=== PATIENT | male | born 1980 | race American Indian/Alaskan Native ===

== ENCOUNTER 2017-03-11 15:36 | Emergency (ER) | payer MEDICAID ==
[2017-03-11 15:44] VITALS: BP 125/82
--- NOTE | 2017-03-11 16:11 | CR ---
Clinical history: 36-year-old male left rib pain (fall down stairs). Interpretation: Abnormal. Acute nondisplaced fracture anterolateral aspect left fifth rib. No appreciable hematoma and no sign of underlying lung contusion or atelectasis. No ipsilateral dependent pleural effusion. No left-sided pneumothorax. Normal cardiac silhouette and pulmonary vascularity. No lung mass hilar lymphadenopathy or focal lob ar pneumonia.
--- NOTE | 2017-03-11 17:14 | EDM.PDOC ---
Scribed by Nancie Fuentes 03/11/17 8217 for Aryan Vides MD ED HPI GENERAL MEDICAL PROBLEM - General Chief Complaint: Chest Pain Stated Complaint: SLIPPED AND HURT LEFT SIDE BY RIBS Time Seen by Provider: 03/11/17 15:49 Source of Information: Reports: Patient, RN, RN Notes Reviewed History Limitations: Reports: No Limitations - History of Present Illness INITIAL COMMENTS - FREE TEXT/NARRATIVE: Arrives to ER with complaint fell down 8 steps about 1 hour ago and hurt his left ribs. Patient states that he was drunk and tripped. Denies head or neck injury, LOS, nausea, vomiting, or difficulty breathing. Location: Reports: Chest Quality: Reports: Ache Severity: Severe Improves with: Reports: None Worsens with: Reports: None Associated Symptoms: Reports: No Other Symptoms Left Chest Pain Score (Numeric/FACES): 9 - Related Data Allergies Allergy/AdvReac Type Severity Reaction Status Date / Time No Known Allergies Allergy Verified 09/27/15 20:01 Home Meds: Home Meds . [No Known Home Meds] 09/27/15 [History] Past Medical History - Past Health History Medical/Surgical History: Denies Medical/Surgical History Social & Family History - Tobacco Use Smoking Status *Q: Light Tobacco Smoker Years of Tobacco use: 5 Packs/Tins Daily: 0.2 - Recreational Drug Use Recreational Drug Use: No ED ROS GENERAL - Review of Systems Review Of Systems: ROS reveals no pertinent complaints other than HPI. ED EXAM, GENERAL - Physical Exam Exam: See Below Exam Limited By: No Limitations General Appearance: Alert, WD/WN, No Apparent Distress Head: Atraumatic, Normocephalic Neck: Full Range of Motion, Other (Nontender.) Respiratory/Chest: Decreased Breath Sounds (but clear breath sounds bilateral with splinting. ), Other (Tenderness to lateral chest wall/ribs. ) Cardiovascular: Normal Peripheral Pulses, Regular Rate, Rhythm, No Edema, No Gallop, No JVD, No Murmur, No Rub GI/Abdominal: Normal Bowel Sounds, Soft, Non-Tender, No Organomegaly, No Distention, No Abnormal Bruit, No Mass Back Exam: Normal Inspection, Full Range of Motion, NT Extremities: Normal Inspection, Normal Range of Motion, Non-Tender, Normal Capillary Refill, No Pedal Edema Neurological: Alert, Oriented, CN II-XII Intact, Normal Cognition, Normal Gait, Normal Reflexes, No Motor/Sensory Deficits Psychiatric: Normal Affect, Normal Mood Skin Exam: Warm, Dry, Intact, Normal Color, No Rash Course - Vital Signs Last Recorded V/S: Last Vital Signs Temp 36.7 C 03/11/17 15:43 Pulse 106 H 03/11/17 15:43 Resp 18 03/11/17 15:43 BP 125/82 03/11/17 15:43 Pulse Ox 92 L 03/11/17 15:43 - Radiology Interpretation Free Text/Narrative:: Ribs/Chest: Per rad report acute nondisplaced fracture anterolateral aspect left fifth rib. Departure - Departure Time of Disposition: 17:10 Disposition: Home, Self-Care 01 Condition: Good Clinical Impression: Left rib fracture Qualifiers: Encounter type: initial encounter Rib fracture type: single rib Fracture type: closed Qualified Code(s): S22.32XA - Fracture of one rib, left side, initial encounter for closed fracture Alcoholic intoxication Qualifiers: Complication of substance-induced condition: uncomplicated Qualified Code(s): F10.920 - Alcohol use, unspecified with intoxication, uncomplicated - Discharge Information Instructions: Alcohol Intoxication, [id number], Rib Fracture, [id number] Referrals: PCP,None [Primary Care Provider] - Forms: ED Department Discharge Additional Instructions: RX: Ibuprofen 600mg. RX: [place] 5mg/325mg. Use ice pack on area of pain as needed. Follow up in clinic in 7-10 days for recheck. I have read and agree with the documentation that has been completed regarding this visit. By signing this record, I attest that the documentation was completed in my physical presence and is an accurate record of the encounter.
== END 2017-03-11 17:19 | disposition home or self-care (01) ==
LOC: DL.ED 15:36
DX: S22.32XA Fracture of one rib, left side, initial encounter for closed fracture (principal); F17.210 Nicotine dependence, cigarettes, uncomplicated; W10.8XXA Fall (on) (from) other stairs and steps, initial encounter
CPT/HCPCS: 71101-LT; 99284

== ENCOUNTER 2019-02-06 17:19 | Emergency (ER) | payer MEDICAID ==
[2019-02-06] MEDS ORDERED: HYDROmorphone 1 MG/ML Syringe IVPUSH ONE ×2 (17:23→19:03)
[2019-02-06] MEDS ORDERED: Ondansetron 4 MG/2 ML SDV IV ONE (17:24)
[2019-02-06] MEDS ORDERED: Sodium Chloride 0.9% 1,000 ML IV SCH (17:30)
--- NOTE | 2019-02-06 17:32 | EDM.PDOC ---
"<Bailey Hirsch - Last Filed: 02/06/19 18:57> ED HPI GENERAL MEDICAL PROBLEM - General Chief Complaint: Abdominal Pain Stated Complaint: AMBULANCE Time Seen by Provider: 02/06/19 17:27 - History of Present Illness INITIAL COMMENTS - FREE TEXT/NARRATIVE: Patient is a 38 year old male presenting with RLQ pain. He states that it began at 16:00 with sharp pain in his right lower quadrant. He tried resting and it did not resolve. He tried to go to the clinic but the pain was too severe to make it so he called the ambulance to come to the ER. He states it was intermittent at first but is getting worse and more consistent. It is starting to radiate across his lower abdomen. He denies any symptoms of fever, chills, chest pain, shortness of breath, dizziness, lightheadedness, blood in stool or urine, changes in urination or bowel habits. He ate a bowel of cereal this morning but has otherwise not eaten anything today. He had some vodka yesterday with his friend, and his last use of methamphetamine was 2 weeks ago. He has no other concerns. - Related Data Allergies Allergy/AdvReac Type Severity Reaction Status Date / Time No Known Allergies Allergy Verified 09/27/15 20:01 Home Meds: Home Meds . [No Known Home Meds] 09/27/15 [History] Past Medical History - Past Health History Medical/Surgical History: Denies Medical/Surgical History ED ROS GENERAL - Review of Systems Review Of Systems: ROS reveals no pertinent complaints other than HPI. ED EXAM, GI/ABD - Physical Exam Exam: See Below Exam Limited By: No Limitations General Appearance: Alert, WD/WN, Severe Distress Eyes: Bilateral: Normal Appearance Ears: Normal External Exam Nose: Normal Inspection Throat/Mouth: Normal Inspection Head: Atraumatic, Normocephalic Neck: Normal Inspection, Supple Respiratory/Chest: Lungs Clear, Normal Breath Sounds, No Accessory Muscle Use Cardiovascular: Normal Peripheral Pulses, Regular Rate, Rhythm, No Murmur GI/Abdominal Exam: Normal Bowel Sounds, Soft, No Distention, No Mass, Guarding, Tender (most severe in RLQ). No: Rebound Back Exam: No: CVA Tenderness (L), CVA Tenderness (R) Extremities: Normal Inspection, No Pedal Edema Neurological: Alert, Oriented Skin Exam: Warm, Dry, Rash (dry skin with open lesions below umbilicus, small scratch in RUQ) Course - Vital Signs Last Recorded V/S: Last Vital Signs Temp 98.5 F 02/06/19 17:49 Pulse 73 02/06/19 17:49 Resp 16 02/06/19 17:49 BP 118/95 H 02/06/19 17:49 Pulse Ox 98 02/06/19 17:49 - Orders/Labs/Meds Orders: Active Orders 24 hr Category Date Time Status Abdomen Pelvis wo Cont [CT] Urgent Exams 02/06/19 17:23 Taken Sodium Chloride 0.9% [Normal Saline] 1,000 ml Med 02/06/19 17:30 Active IV ASDIRECTED Medication Orders Sodium Chloride (Normal Saline) 1,000 mls @ 999 mls/hr IV ASDIRECTED LUAN Last Admin: 02/06/19 17:33 Dose: 999 mls/hr Labs: Laboratory Tests 02/06/19 02/06/19 02/06/19 Range/Units 17:10 18:05 18:05 WBC 5.2 (5.0-10.0) 10^3/uL RBC 4.50 L (4.6-6.2) 10^6/uL Hgb 13.7 L (14.0-18.0) g/dL Hct 39.6 L (40.0-54.0) % MCV 88.0 (80-100) fL MCH 30.4 (27.0-34.0) pg MCHC 34.6 (33.0-35.0) g/dL Plt Count 155 (150-450) 10^3/uL Neut % (Auto) 66.3 (42.2-75.2) % Lymph % (Auto) 24.2 (20.5-50.1) % Orange % (Auto) 8.2 H (2-8) % Eos % (Auto) 1.1 (1.0-3.0) % Baso % (Auto) 0.2 (0.0-1.0) % Sodium 136 (135-145) mmol/L Potassium 3.8 (3.6-5.0) mmol/L Chloride 105 (101-111) mmol/L Carbon Dioxide 23.0 (21.0-31.0) mmol/L Anion Gap 11.8 BUN 9 (7-18) mg/dL Creatinine 0.7 (0.6-1.3) mg/dL Est Cr Clr Drug Dosing TNP Estimated GFR (MDRD) > 60 BUN/Creatinine Ratio 12.85 Glucose 97 (74-105) mg/dL Calcium 8.2 L (8.4-10.2) mg/dl Total Bilirubin 1.2 H (0.2-1.0) mg/dL AST 253 H (10-42) IU/L ALT 269 H (10-60) IU/L Alkaline Phosphatase 55 (42-121) IU/L Total Protein 7.3 (6.7-8.2) g/dl Albumin 3.8 (3.2-5.5) g/dl Globulin 3.5 Albumin/Globulin Ratio 1.09 Amylase (28-100) U/L Lipase (22-51) U/L Urine Color Yellow (YELLOW) Urine Appearance Clear (CLEAR) Urine pH 7.0 (5.0-9.0) Ur Specific [place] 1.020 (1.005-1.030) Urine Protein Negative (NEGATIVE) Urine Glucose (UA) Negative (NEGATIVE) Urine Ketones Negative (NEGATIVE) Urine Occult Blood Negative (NEGATIVE) Urine Nitrite Negative (NEGATIVE) Urine Bilirubin Negative (NEGATIVE) Urine Urobilinogen 4.0 H (0.2-1.0) mg/dL Ur Leukocyte Esterase Negative (NEGATIVE) 02/06/19 Range/Units 18:05 WBC (5.0-10.0) 10^3/uL RBC (4.6-6.2) 10^6/uL Hgb (14.0-18.0) g/dL Hct (40.0-54.0) % MCV (80-100) fL MCH (27.0-34.0) pg MCHC (33.0-35.0) g/dL Plt Count (150-450) 10^3/uL Neut % (Auto) (42.2-75.2) % Lymph % (Auto) (20.5-50.1) % Orange % (Auto) (2-8) % Eos % (Auto) (1.0-3.0) % Baso % (Auto) (0.0-1.0) % Sodium (135-145) mmol/L Potassium (3.6-5.0) mmol/L Chloride (101-111) mmol/L Carbon Dioxide (21.0-31.0) mmol/L Anion Gap BUN (7-18) mg/dL Creatinine (0.6-1.3) mg/dL Est Cr Clr Drug Dosing Estimated GFR (MDRD) BUN/Creatinine Ratio Glucose (74-105) mg/dL Calcium (8.4-10.2) mg/dl Total Bilirubin (0.2-1.0) mg/dL AST (10-42) IU/L ALT (10-60) IU/L Alkaline Phosphatase (42-121) IU/L Total Protein (6.7-8.2) g/dl Albumin (3.2-5.5) g/dl Globulin Albumin/Globulin Ratio Amylase 52 (28-100) U/L Lipase 26 (22-51) U/L Urine Color (YELLOW) Urine Appearance (CLEAR) Urine pH (5.0-9.0) Ur Specific [place] (1.005-1.030) Urine Protein (NEGATIVE) Urine Glucose (UA) (NEGATIVE) Urine Ketones (NEGATIVE) Urine Occult Blood (NEGATIVE) Urine Nitrite (NEGATIVE) Urine Bilirubin (NEGATIVE) Urine Urobilinogen (0.2-1.0) mg/dL Ur Leukocyte Esterase (NEGATIVE) Meds: Medications Generic Name Dose Route Start Last Admin Trade Name Freq PRN Reason Stop Dose Admin Sodium Chloride 1,000 mls @ 999 mls/hr 02/06/19 17:30 02/06/19 17:33 Normal Saline IV 999 mls/hr ASDIRECTED LUAN Administration Discontinued Medications Generic Name Dose Route Start Last Admin Trade Name Freq PRN Reason Stop Dose Admin Dicyclomine HCl 20 mg 02/06/19 18:57 Bentyl IM 02/06/19 18:58 ONETIME ONE Hydromorphone HCl 1 mg 02/06/19 17:23 02/06/19 17:33 Dilaudid IVPUSH 02/06/19 17:24 1 mg ONETIME ONE Administration Hydromorphone HCl 1 mg 02/06/19 19:03 Dilaudid IVPUSH 02/06/19 19:04 ONETIME ONE Ketorolac Tromethamine 30 mg 02/06/19 18:20 02/06/19 18:24 Toradol IVPUSH 02/06/19 18:21 30 mg ONETIME ONE Administration Ondansetron HCl 4 mg 02/06/19 17:24 02/06/19 17:33 Zofran IV 02/06/19 17:25 4 mg ONETIME ONE Administration Departure - Departure Time of Disposition: 18:58 Disposition: Home, Self-Care 01 Condition: Fair Clinical Impression: Liver enzyme elevation - Discharge Information *PRESCRIPTION DRUG MONITORING PROGRAM REVIEWED*: No *COPY OF PRESCRIPTION DRUG MONITORING REPORT IN PATIENT MARISSA: No Instructions: Nausea and Vomiting, Adult, [id number], Pain Medicine Instructions, [id number] Forms: ED Department Discharge Additional Instructions: 1. Patient is to stay hydrated by drinking water and take prescribed medications including Bentyl 20mg PO 4 times per day as needed for abdominal pain and Zofran 4mg every 6-8 hours as needed for nausea and vomiting. 2. Patient was instructed to stop alcohol intake and methamphetamine as this can make his symptoms worse. 3. Advised to follow-up with primary care provider in clinic this week to follow -up his elevated liver enzymes. <Angelo Vides - Last Filed: 02/06/19 19:06> ED HPI GENERAL MEDICAL PROBLEM Right Lower Abdomen Pain Score (Numeric/FACES): 8 Course - Radiology Interpretation Free Text/Narrative:: assistance Online chat: [email or web address] Name: GAURANG GONZALEZ Age: 38Years M Date: 02/06/2019 SSN: -- : [id number] Study: CT ABDOMEN/PELVIS WO Requesting Physician: ANGELO VIDES Images: [id number] Addl Studies: Provided Clinical History: Contrast: Without Contrast Medium: Contrast Amount: Contrast Method: Page 1 of 2 EXAM: CT Abdomen and Pelvis Without Contrast EXAM DATE/TIME: 02/06/2019 5:41 PM CLINICAL HISTORY: 38 years old, male; Abdominal pain; Localized; Right lower quadrant (rlq) TECHNIQUE: Imaging protocol: Axial computed tomography images of the abdomen and pelvis without contrast. Coronal and sagittal reformatted images were created and reviewed. Radiation optimization: All CT scans at this facility use at least one of these dose optimization techniques: automated exposure control; mA and/or kV adjustment per patient size (includes targeted exams where dose is matched to clinical indication); or iterative reconstruction. COMPARISON: No relevant prior studies available. FINDINGS: Lungs: There are no suspicious pulmonary nodules or areas of lung consolidation. ABDOMEN: Liver: There is moderate fatty liver replacement. Gallbladder and bile ducts: No calcified gallstones. No ductal dilation. Pancreas: The pancreatic parenchyma is normal in bulk and sharply marginated. Duct is not dilated. No calcifications, masses, or abnormal fluid collections. Spleen: Spleen is normal in size. No mass or fluid collection. Adrenals: There are no adrenal masses. Kidneys and ureters: Normal in parenchymal bulk. No hydronephrosis or asymmetric perinephric stranding. No solid masses. No stones. GAURNAG GONZALEZ | Final Radiology Report CONFIDENTIALITY STATEMENT This report is intended only for use by the referring physician, and only in accordance with law. If you received this in error, call [phone]. Page 2 of 2 Stomach and bowel: No significant abnormalities of the stomach. There are no dilated or thickened small bowel loops. Gas and stool of appropriate quantities are seen in the colon. No mass. Appendix: The appendix is seen. It is normal. PELVIS: Bladder: Mild, eccentric bladder wall thickening could be due to relative nondistention, cystitis, or other. Reproductive: Prostate gland is normal in size. The seminal vesicles are unremarkable. ABDOMEN and PELVIS: Intraperitoneal space: No ascites. No abscess. No inflammation within the intra- abdominal fat. No pneumoperitoneum. No mass. Bones/joints: There are no suspicious lytic or osteosclerotic lesions. There are no vertebral compression fractures. Soft tissues: See Intraperitoneal Space Finding. Vasculature: Normal. No abdominal aortic aneurysm. Lymph nodes: There are no enlarged celiac, mesenteric, periportal, extraperitoneal or inguinal lymph nodes. IMPRESSION: 1. Mild, eccentric bladder wall thickening could be due to relative nondistention, cystitis, or other. 2. Normal appendix. Thank you for allowing us to participate in the care of your patient. Dictated and Authenticated by: Nnamdi Lopez MD 02/06/2019 6:04 PM Central Time ([place] & [place]) - Re-Assessments/Exams Free Text/Narrative Re-Assessment/Exam: 02/06/19 18:07 I personally performed or re-performed the physical examination and medical decision making. I have verified all student documentation or findings, including history, physical exam and/or medical decision making."
[2019-02-06] MEDS ORDERED: Ketorolac 30 MG/ML SDV IVPUSH ONE (18:20)
[2019-02-06 18:34] LABS: ANION GAP 11.8; CHLORIDE,CL 105 mmol/L (101-111); SODIUM,NA 136 mmol/L (135-145)
[2019-02-06] MEDS ORDERED: Dicyclomine 20 MG/2 ML SDV IM ONE (18:57)
[2019-02-06 19:14] VITALS: BP 145/92
== END 2019-02-06 19:33 | disposition home or self-care (01) ==
LOC: DL.ED 17:19
DX: R74.8 Abnormal levels of other serum enzymes (principal)
CPT/HCPCS: 36415; 74176; 80053; 81003; 82150; 83690; 85025; 96361; 96372; 96374; 96375; 96376; 99285-25; J0500; J1170; J1885; J2405; J7030

== ENCOUNTER 2019-03-01 16:08 | Emergency (ER) | payer MEDICAID ==
[2019-03-01 16:52] VITALS: BP 135/94
--- NOTE | 2019-03-01 17:17 | EDM.PDOC ---
Scribed by Nancie Fuentes 03/01/19 1717 for José Miguel Basilio PA ED HPI GENERAL MEDICAL PROBLEM - General Chief Complaint: Trauma Stated Complaint: MAY HAVE BROKEN RIB Time Seen by Provider: 03/01/19 16:23 Source of Information: Reports: Patient, RN, RN Notes Reviewed History Limitations: Reports: No Limitations - History of Present Illness INITIAL COMMENTS - FREE TEXT/NARRATIVE: Patient is a 38-year-old male who fell down about 12 steps 2 days ago. The patient reports continued lateral rib pain since he fell. The patient reports he took Ibuprofen this morning. The patient reports he may have gotten knocked out during the fall. The patient has a healed laceration above right eye with some bruising. Onset Date: 02/27/19 Duration: Constant Location: Reports: Other (ribs) Quality: Reports: Ache Severity: Moderate Improves with: Reports: None Worsens with: Reports: None Associated Symptoms: Reports: No Other Symptoms - Related Data Allergies Allergy/AdvReac Type Severity Reaction Status Date / Time No Known Allergies Allergy Verified 03/01/19 16:25 Home Meds: Home Meds . [No Known Home Meds] 09/27/15 [History] Past Medical History - Past Health History Medical/Surgical History: Denies Medical/Surgical History ED ROS GENERAL - Review of Systems Review Of Systems: ROS reveals no pertinent complaints other than HPI. ED EXAM, GENERAL - Physical Exam Exam: See Below Exam Limited By: No Limitations General Appearance: Alert, WD/WN, No Apparent Distress Eye Exam: Right Eye: Other (bruising to right eye), Bilateral Eye: EOMI, Normal Inspection, PERRL Ears: Normal External Exam, Normal Canal, Hearing Grossly Normal, Normal TMs Nose: Normal Inspection, Normal Mucosa, No Blood Throat/Mouth: Normal Inspection, Normal Lips, Normal Teeth, Normal Gums, Normal Oropharynx, Normal Voice, No Airway Compromise Head: Atraumatic, Normocephalic Neck: Normal Inspection, Supple, Non-Tender, Full Range of Motion Respiratory/Chest: Other (Tenderness to lateral ribs bilaterally with bruising mid axillary line bilaterally. No crepitus upon palpation. ) Cardiovascular: Normal Peripheral Pulses, Regular Rate, Rhythm, No Edema, No Gallop, No JVD, No Murmur, No Rub GI/Abdominal: Normal Bowel Sounds, Soft, Non-Tender, No Organomegaly, No Distention, No Abnormal Bruit, No Mass (Male) Exam: Deferred Rectal (Males) Exam: Deferred Back Exam: Other (bilateral rb pain upon palpation) Extremities: Normal Inspection, Normal Range of Motion, Non-Tender, Normal Capillary Refill, No Pedal Edema Neurological: Alert, Oriented, CN II-XII Intact, Normal Cognition, Normal Gait, Normal Reflexes, No Motor/Sensory Deficits Psychiatric: Normal Affect, Normal Mood Skin Exam: Warm, Dry, Intact, Normal Color, No Rash Lymphatic: No Adenopathy Course - Vital Signs Last Recorded V/S: Last Vital Signs Temp 36.9 C 03/01/19 16:50 Pulse 78 03/01/19 16:50 Resp 18 03/01/19 16:50 BP 135/94 H 03/01/19 16:50 Pulse Ox 98 03/01/19 16:50 - Orders/Labs/Meds Orders: Active Orders 24 hr Category Date Time Status Ribs 3V w Chest Bi [CR] Urgent Exams 03/01/19 16:21 Ordered Departure - Departure Time of Disposition: 17:16 Disposition: Home, Self-Care 01 Condition: Fair Clinical Impression: Chest wall contusion Qualifiers: Encounter type: initial encounter Laterality: unspecified laterality Qualified Code(s): S20.219A - Contusion of unspecified front wall of thorax, initial encounter - Discharge Information *PRESCRIPTION DRUG MONITORING PROGRAM REVIEWED*: Not Applicable *COPY OF PRESCRIPTION DRUG MONITORING REPORT IN PATIENT MARISSA: Not Applicable Instructions: Contusion, Jiat-sm-Pcqs Forms: ED Department Discharge Care Plan Goals: The patient was advised of the examination and x-ray results during the visit. The patient was encouraged to take Tylenol or ibuprofen for temporary symptom relief. If the patient has any additional symptoms or concerns, the patient should either return to the emergency department or visit his primary care facility. - My Orders Last 24 Hours: My Active Orders 03/01/19 16:21 Ribs 3V w Chest Bi [CR] Urgent - Assessment/Plan Last 24 Hours: My Active Orders 03/01/19 16:21 Ribs 3V w Chest Bi [CR] Urgent I have read and agree with the documentation that has been completed regarding this visit. By signing this record, I attest that the documentation was completed in my physical presence and is an accurate record of the encounter.
== END 2019-03-01 17:25 | disposition home or self-care (01) ==
LOC: DL.ED 16:08
DX: S20.219A Contusion of unspecified front wall of thorax, initial encounter (principal); W19.XXXA Unspecified fall, initial encounter
CPT/HCPCS: 71111; 99283-25

== ENCOUNTER 2019-07-06 19:50 | Emergency (ER) | payer MEDICAID ==
[2019-07-06 20:03] VITALS: BP 111/83; PULSE 99
--- NOTE | 2019-07-06 20:59 | EDM.PDOC ---
ED HPI GENERAL MEDICAL PROBLEM - General Chief Complaint: Upper Extremity Injury/Pain Stated Complaint: INJURED L ARM Time Seen by Provider: 07/06/19 20:13 Source of Information: Reports: Patient, RN, RN Notes Reviewed History Limitations: Reports: Intoxication - History of Present Illness INITIAL COMMENTS - FREE TEXT/NARRATIVE: patient presents to the ER,accompanied by his brother, with complaint of left arm pain. He states he was leaving [employer] when he fell. Patient states he fell on the left arm injuring it. Patient states he has been drinking alcohol. Patient complains of pain from the left upper arm down into the hand.Denies hitting his head or being knocked out.patient states this occurred 30 minutes prior to arrival. Onset: Today, Sudden Duration: Constant Location: Reports: Upper Extremity, Left Left Arm Pain Score (Numeric/FACES): 8 - Related Data Allergies Allergy/AdvReac Type Severity Reaction Status Date / Time No Known Allergies Allergy Verified 07/06/19 20:04 Home Meds: Home Meds . [No Known Home Meds] 09/27/15 [History] Past Medical History - Past Health History Medical/Surgical History: Denies Medical/Surgical History HEENT History: Reports: None Cardiovascular History: Reports: None Respiratory History: Reports: None Gastrointestinal History: Reports: None Genitourinary History: Reports: None Musculoskeletal History: Reports: Other (See Below) Other Musculoskeletal History: left arm injury hx of being cut on left arm Neurological History: Reports: None Psychiatric History: Reports: None Endocrine/Metabolic History: Reports: None Hematologic History: Reports: None Immunologic History: Reports: None Oncologic (Cancer) History: Reports: None Dermatologic History: Reports: None - Infectious Disease History Infectious Disease History: Reports: None - Past Surgical History Head Surgeries/Procedures: Reports: None Social & Family History - Family History Family Medical History: Noncontributory - Tobacco Use Smoking Status *Q: Never Smoker - Caffeine Use Caffeine Use: Reports: Coffee, Soda - Recreational Drug Use Recreational Drug Use: No Review of Systems - Review of Systems Review Of Systems: ROS reveals no pertinent complaints other than HPI. ED EXAM, GENERAL - Physical Exam Exam: See Below Exam Limited By: Intoxication General Appearance: Alert, WD/WN, Moderate Distress Eye Exam: Bilateral Eye: EOMI, Normal Inspection Ears: Normal External Exam, Hearing Grossly Normal Nose: Normal Inspection Throat/Mouth: Normal Inspection, Normal Voice, No Airway Compromise Head: Atraumatic, Normocephalic Neck: Normal Inspection, Supple, Non-Tender, Full Range of Motion Respiratory/Chest: No Respiratory Distress, Lungs Clear, Normal Breath Sounds, No Accessory Muscle Use, Chest Non-Tender Cardiovascular: Normal Peripheral Pulses, Regular Rate, Rhythm, No Edema, No Gallop, No JVD, No Murmur, No Rub Peripheral Pulses: 2+: Radial (L), Radial (R) GI/Abdominal: Normal Bowel Sounds, Soft, Non-Tender (Male) Exam: Deferred Rectal (Males) Exam: Deferred Back Exam: Normal Inspection, Full Range of Motion, NT Extremities: No Pedal Edema, Normal Capillary Refill, Arm Pain (left), Limited Range of Motion (eft arm) Neurological: Alert, Oriented, Normal Gait Psychiatric: Anxious Skin Exam: Warm, Dry, Intact, Normal Color, No Rash Lymphatic: No Adenopathy Course - Vital Signs Last Recorded V/S: Last Vital Signs Temp 97.2 F 07/06/19 20:01 Pulse 99 07/06/19 20:01 Resp 20 07/06/19 20:01 BP 111/83 07/06/19 20:01 Pulse Ox 96 07/06/19 20:01 - Radiology Interpretation Free Text/Narrative:: Left shoulder xray: FINDINGS: Bones/joints: Unremarkable. No significant degenerative change for age. No evidence of acute fracture or malalingment. Soft tissues: Unremarkable. IMPRESSION: No acute findings. Thank you for allowing us to participate in the care of your patient. Dictated and Authenticated by: Baljinder Martell MD 07/06/2019 9:19 PM Central Time ([place] & [place]) Left elbow xray: FINDINGS: Bones/joints: Typical for age. No evidence of acute fracture. Soft tissues: Unremarkable. IMPRESSION: No acute findings. Thank you for allowing us to participate in the care of your patient. Dictated and Authenticated by: Baljinder Martell MD 07/06/2019 9:19 PM Central Time ([place] & [place]) Left hand: FINDINGS: Limited views. Bones/joints: There are some degenerative changes. No obvious acute fracture. Soft tissues: Unremarkable. IMPRESSION: No acute findings. If there are persistent symptoms then I would suggest routine 4 view study when the patient can cooperate for the exam. Thank you for allowing us to participate in the care of your patient. Dictated and Authenticated by: Baljinder Martell MD 07/06/2019 9:15 PM Central Time ([place] & [place]) See rad report - Re-Assessments/Exams Free Text/Narrative Re-Assessment/Exam: 07/06/19 21:28 when discussing the x-ray results with the patient, the patient states he will not wear a sling. When initially assessing the patient patient denied hitting his head or being knocked out. Upon discharge patient states he didn't know what his brother's name was or how he got here. Discussed a head CT with the patient, who refuses to have a head CT done at this time. Departure - Departure Time of Disposition: 21:22 Disposition: Home, Self-Care 01 Condition: Fair Clinical Impression: Left arm pain - Discharge Information *PRESCRIPTION DRUG MONITORING PROGRAM REVIEWED*: No *COPY OF PRESCRIPTION DRUG MONITORING REPORT IN PATIENT MARISSA: No Instructions: How to Use a Sling, [id number], Shoulder Pain, [id number], Heat Therapy, [id number] Forms: ED Department Discharge Additional Instructions: May use heat and ice to the area as tolerated When not drinking alcohol, you may use Tylenol and/or Ibuprofen as directed for pain Follow up with your primary care facility if pain persists
== END 2019-07-06 21:29 | disposition home or self-care (01) ==
LOC: DL.ED 19:50
DX: M79.622 Pain in left upper arm (principal); W19.XXXA Unspecified fall, initial encounter; Y92.89 Other specified places as the place of occurrence of the external cause
CPT/HCPCS: 73030-LT; 73070-LT; 73120-LT; 99283-25

== ENCOUNTER 2023-01-12 17:19 | Emergency (ER) | payer MEDICAID ==
[2023-01-12 18:13] LABS: BARBITURATES,URINE NEGATIVE (NEGATIVE); BENZODIAZEPINE,URINE NEGATIVE (NEGATIVE); MDMA (ECSTASY), URINE POSITIVE (NEGATIVE); METHADONE,URINE NEGATIVE (NEGATIVE); METHAMPHETAMINES,URINE POSITIVE (NEGATIVE); OPIATES,URINE NEGATIVE (NEGATIVE); PHENCYCLIDINE,URINE NEGATIVE (NEGATIVE); TCA,URINE NEGATIVE (NEGATIVE)
[2023-01-12 18:14] LABS: AMPHETAMINES,URINE POSITIVE (NEGATIVE); OXYCODONE,URINE NEGATIVE (NEGATIVE)
[2023-01-12 18:28] LABS: BASOPHILS PERCENT AUTO 0.4 % (0.0-1.0); EOSINOPHILS PERCENT AUTO 1.9 % (1.0-3.0); HEMATOCRIT 40.3 % (40.0-54.0); LYMPHOCYTES PERCENT AUTO 41.8 % (20.5-50.1); MEAN CORPUSCULAR HGB CONC 34.7 g/dL (33.0-35.0); MEAN CORPUSCULAR VOLUME 89.4 fL (80-100); MONOCYTES PERCENT AUTO 7.4 % (2-8); NEUTROPHILS PERCENT AUTO 48.5 % (42.2-75.2); PLATELET COUNT,PLT 229 10^3/uL (150-450); RED BLOOD CELL COUNT 4.51 10^6/uL (4.6-6.2); WHITE BLOOD CELL COUNT,WBC 6.8 10^3/uL (5.0-10.0)
[2023-01-12 18:48] LABS: A/G RATIO 0.7; ALBUMIN 3.5 g/dL (3.4-5.0); ANION GAP 14.5 mEq/L (7-13); BILIRUBIN TOTAL 0.4 mg/dL (0.2-1.0); BUN/CREATININE RATIO 16.5 (No establ ref range); CALCIUM 8.4 mg/dL (8.5-10.1); CREATININE 0.97 mg/dL (0.70-1.30); POTASSIUM,K 3.5 mmol/L (3.5-5.1); PROTEIN TOTAL,TP 8.2 g/dL (6.4-8.2)
[2023-01-12] MEDS ORDERED: Doxycycline Monohydrate 100 MG Cap PO ONE (19:44)
[2023-01-12] MEDS ORDERED: Thiamine 100 MG in Sodium Chloride 0.9% 100 ML IV ONE (20:54)
[2023-01-12] MEDS ORDERED: Sodium Chloride 0.9% 1,000 ML IV SCH (21:00)
[2023-01-12 21:40] VITALS: BP 125/85; PULSE 96
== END 2023-01-12 21:37 ==
LOC: DL.ED 17:19
DX: S34.109A Unspecified injury to unspecified level of lumbar spinal cord, initial encounter (principal); R20.0 Anesthesia of skin
CPT/HCPCS: 36415; 70450; 71045; 72125; 72128; 72131; 73501; 73560; 73600; 80053; 80305; 80307; 82550; 85025; 93005; 99284; A9270; J3411; J3490; J7030